=== PATIENT | male | born 1970 | race Caucasian/White ===

== ENCOUNTER 2018-06-13 11:42 | Inpatient (IN) | payer OTHER ==
[2018-06-13] MEDS ORDERED: Morphine VIAL* 10 MG/ML 1 ML VIAL IV ONE (13:33)
[2018-06-13] MEDS ORDERED: NS 0.9% 1000 ML** 1,000 ML IV ONE ×2 (13:33→14:44)
[2018-06-13] MEDS ORDERED: Ondansetron INJ* 2 MG/ML VIAL IV ONE ×2 (13:33→14:43)
--- NOTE | 2018-06-13 13:35 | ED ---
Abdominal Pain/Male - HPI Summary HPI Summary: A 48 y/o M inmate presents to ED with c/o RUQ abd pain onset at 1000 this AM. Pt had some abd pain last night and went to the [facility]. He felt better this AM, but the pain came back at 1000 and escalated quickly. At bedside, he rates the pain as 8/9 out of 10. The pain is described as pulsing and stabbing, He was given Toradol at [facility] in ED. PMHx: gallstones. Associated sx: n/v 6x , last emesis was at 729. NPO since 729 this date. Pt denies any fever, chills , erythema of eyes, sore throat, CP, SOB, cough, diarrhea, dysuria, hematuria, myalgia, edema, rash, or dizziness. He ate [employer] steak/sponge cake prior to getting his abd pain. Previous drug use: cocaine, marijuana. - History of Current Complaint Chief Complaint: EDAbdPain Stated Complaint: "UPPER STOMACH PAIN" PER GUARD Time Seen by Provider: 06/13/18 13:31 Hx Obtained From: Patient, Medical Records Onset/Duration: Sudden Onset, Lasting Hours, Still Present Timing: Constant Severity Initially: Severe Severity Currently: Severe Pain Intensity: 8 Pain Scale Used: 0-10 Numeric Location: Discrete At: RUQ Character: Other: - pulsing/stabbing Associated Signs And Symptoms: Positive: Nausea, Vomiting. Negative: Fever, Diarrhea - Allergies/Home Medications Allergies/Adverse Reactions: Allergies Allergy/AdvReac Type Severity Reaction Status Date / Time No Known Allergies Allergy Verified 06/13/18 11:50 Home Medications: Home Medications Ibuprofen TAB* [Motrin TAB* 400 MG] 400 mg PO BID 06/13/18 [History Confirmed ] Omeprazole Magnesium [Prilosec] 20 mg PO DAILY 06/13/18 [History Confirmed 06/13] PMH/Surg Hx/FS Hx/Imm Hx Previously Healthy: No GI History: Reports: Other GI Disorders - gallstones Sensory History: Denies: Hx Legally Blind Opthamlomology History: Denies: Hx Legally Blind EENT History: Denies: Hx Deafness Neurological History: Denies: Hx Dementia Infectious Disease History: No Infectious Disease History: Denies: Traveled Outside the [place] in Last 30 Days - Family History Family History: mom - gallstones - Social History Occupation: Unemployed Lives: [facility] [place], inmate Hx Substance Use: Yes - previously Substance Use Type: Reports: Cocaine, Marijuana Review of Systems Negative: Fever, Chills Negative: Erythema Negative: Sore Throat Negative: Chest Pain Negative: Shortness Of Breath, Cough Positive: Abdominal Pain, Vomiting, Nausea. Negative: Diarrhea Negative: dysuria, hematuria Negative: Myalgia, Edema Negative: Rash Neurological: Other - neg: dizziness All Other Systems Reviewed And Are Negative: Yes Physical Exam - Summary Physical Exam Summary: Constitutional: Well-developed, Well-nourished, Alert. (-) Distressed Skin: Hot to touch, Dry HENT: Normocephalic; Atraumatic Eyes: Conjunctiva normal Neck: Musculoskeletal ROM normal neck. (-) JVD, (-) Stridor, (-) Tracheal deviation Cardio: Rhythm regular, rate normal, Heart sounds normal; Intact distal pulses; The pedal pulses are 2+ and symmetric. Radial pulses are 2+ and symmetric. (-) Murmur Pulmonary/Chest wall: Effort normal. (-) Respiratory distress, (-) Wheezes, (-) Rales Abd: Soft, epigastric and LUQ tenderness, (-) Distension, (-) Guarding, (-) Rebound Musculoskeletal: (-) Edema Lymph: (-) Cervical adenopathy Neuro: Alert, Oriented x3 Psych: Mood and affect Normal Triage Information Reviewed: Yes Vital Signs On Initial Exam: Initial Vitals Temp Pulse Resp BP Pulse Ox 99.4 F 127 18 119/83 97 06/13/18 11:46 06/13/18 11:46 06/13/18 11:46 06/13/18 11:46 06/13/18 11:46 Vital Signs Reviewed: Yes Diagnostics - Vital Signs Vital Signs Temp Pulse Resp BP Pulse Ox 06/13/18 13:27 103.1 F 144 20 106/69 98 06/13/18 11:46 99.4 F 127 18 119/83 97 - Laboratory Result Diagrams: 06/13/18 13:40 06/13/18 13:40 Lab Statement: Any lab studies that have been ordered have been reviewed, and results considered in the medical decision making process. - CT A/P CT CT Interpretation Completed By: Radiologist Summary of CT Findings: IMPRESSION: Cholelithiasis with distended gallbladder and pericholecystic fluid and infiltration of fat suggestive of cholecystitis. Large multiloculated cystic mass lower pole left kidney measuring up to 10.9 cm in length with components of enhancement. A cystic renal cell carcinoma is not excluded. ED provider has reviewed this report. - Ultrasound No standard instances Ultrasound Interpretation Completed By: Radiologist Summary of Ultrasound Findings: GALLBLADDER, U/S: IMPRESSION: Cholelithiasis with partially collapsed gallbladder wall measuring up to 0.5 cm although there is a positive sonographic Salcido sign. No biliary duct dilatation is noted. Limited evaluation of the liver. ED provider has reviewed this report. - EKG 1353 Cardiac Rate: Tachycardia - 116bpm EKG Rhythm: Sinus Tachycardia Summary of EKG Findings: No STEMI. Re-Evaluation - Re-Evaluation 1 Re-Evaluation Time: 16:08 Change: Improved Comment: Discussing CT results and consult with surgery. Abdominal Pain Male Course/Dx - Course Course Of Treatment: A 48 y/o M inmate presents to ED with c/o RUQ abd pain onset at 1000 this AM. Pt had some abd pain last night and went to the [facility]. He felt better this AM, but the pain came back at 1000 and escalated quickly. At bedside, he rates the pain as 8/9 out of 10. The pain is described as pulsing and stabbing, He was given Toradol at [facility] in ED. PMHx: gallstones. Associated sx: n/v 6x, last emesis was at 0730. NPO since 0730 this date. Pt denies any fever, chills, erythema of eyes, sore throat, CP, SOB, cough , diarrhea, dysuria, hematuria, myalgia, edema, rash, or dizziness. He ate [employer] steak/sponge cake prior to getting his abd pain. Previous drug use: cocaine, marijuana. Gallbladder U/S reveals Cholelithiasis with partially collapsed gallbladder wall measuring up to 0.5 cm although there is a positive sonographic Salcido sign. No biliary duct dilatation is noted. Limited evaluation of the liver. A/P CT shows "Cholelithiasis with distended gallbladder and pericholecystic fluid and infiltration of fat suggestive of cholecystitis. Large multiloculated cystic mass lower pole left kidney measuring up to 10.9 cm in length with components of enhancement. A cystic renal cell carcinoma is not excluded.". Consulted with Dr. Steel, surgery, who will see pt in ED and admit for surgery. - Diagnoses Differential Diagnosis/HQI/PQRI: Pancreatitis, Other - gastritis, cholecystitis , colangitis Provider Diagnoses: Cholecystitis - Provider Notifications Discussed Care Of Patient With: Francisco Steel - surgery Time Discussed With Above Provider: 16:10 Instructed by Provider To: MD Will See In ED - will admit to surgery Discharge - Sign-Out/Discharge Documenting (check all that apply): Patient Departure - OR Patient Received Moderate/Deep Sedation with Procedure: No - Discharge Plan Disposition: ADMITTED TO [facility] - Attestation Statements Document Initiated by Scribe: Yes Documenting Scribe: Pina Laird Provider For Whom Scribe is Documenting (Include Credential): Dr. Babak Jerry MD Scribe Attestation: I, cora Kelleribed for Dr. Babak Jerry MD on 06/13/18 at 1921. Status of Scribe Document: Ready
[2018-06-13] MEDS ORDERED: Acetaminophen TAB* 325 MG PO ONE (13:50)
[2018-06-13 13:52] LABS: ABS Basophils 0 10^3/ul (0-0.2); ABS Eosinophils 0 10^3/ul (0-0.6); ABS Lymphocytes 0.2 10^3/ul (1.0-4.8); ABS Monocytes 0.2 10^3/ul (0-0.8); ABS Neutrophils 7.5 10^3/ul (1.5-7.7); ABS Nucleated RBC 0 10^3/ul; Eosinophil % 0.3 %; Hematocrit 45 % (42-52); Hemoglobin 15.3 g/dl (14.0-18.0); Lymphocyte % 2.4 %; Mean Corpuscular HGB Conc 34 g/dl (31-36); Mean Corpuscular Hemoglobin 31 pg (27-31); Mean Corpuscular Volume 90 fL (80-94); Mean Platelet Volume 9.7 fL (7.4-10.4); Nucleated Red Blood Cells % 0; Platelet Count 141 10^3/ul (150-450); Red Blood Count 4.98 10^6/ul (4.00-5.40); Red Cell Distribution Width 14 % (10.5-15); White Blood Count 7.9 10^3/ul (3.5-10.8)
[2018-06-13 14:18] LABS: ALT 20 U/L (7-52); AST 22 U/L (13-39); Albumin 4.5 g/dL (3.2-5.2); Albumin/Globulin Ratio 1.8 (1-3); Alkaline Phosphatase 99 U/L (34-104); Anion Gap 10 mmol/L (2-11); BUN/Creatinine Ratio 14.7 (8-20); Blood Urea Nitrogen 14 mg/dL (6-24); C Reactive Protein 133.97 mg/L (<8.01); CO2 Carbon Dioxide 22 mmol/L (22-32); Calcium 9.5 mg/dL (8.6-10.3); Chloride 105 mmol/L (101-111); EGFR African American 101.5 (>60); EGFR Non-African American 83.9 (>60); Globulin 2.5 g/dL (2-4); Glucose 135 mg/dL (70-100); Potassium 3.2 mmol/L (3.5-5.0); Sodium 137 mmol/L (135-145)
[2018-06-13] MEDS ORDERED: Iohexol 300* (CONTRAST) 10 ML SDV IV ONE (15:25)
[2018-06-13] MEDS ORDERED: metroNIDAZOLE IV 500 MG/100ML* 500 MG/100 ML BAG IVPB ONE (16:04)
[2018-06-13] MEDS ORDERED: Ciprofloxacin 400MG IVPREMIX(* 400 MG/200 ML BAG IVPB ONE (16:04)
[2018-06-13] MEDS ORDERED: Ondansetron INJ* 2 MG/ML VIAL IV PRN (17:37)
[2018-06-13] MEDS ORDERED: NS 0.9% 1000 ML** 1,000 ML IV SCH (17:45)
[2018-06-13] MEDS ORDERED: HYDROmorphone INJ1* 1 MG/ML SYRINGE IV SLOW PU PRN (17:56)
[2018-06-13] MEDS ORDERED: Piperacillin/Tazobactam VIAL*) 3.375 GM in NS 0.9% 100 ML* 100 ML IVPB SCH (18:00)
[2018-06-13] MEDS ORDERED: Zosyn 3.375 GM IV - ED ONCE IVPB ONE ×2 (18:30)
--- NOTE | 2018-06-13 20:04 | HP ---
ADMISSION HISTORY AND PHYSICAL: DATE OF ADMISSION: This patient was seen in the [facility] Emergency Department on 06/13/18. ATTENDING PHYSICIAN: Dr. Francisco Steel* (dictated by Cathie Garland NP). CHIEF COMPLAINT: Abdominal pain. HISTORY OF PRESENT ILLNESS: The patient is a 48-year-old male, who is an inmate at [facility], who presented to the emergency room today with right upper quadrant and epigastric abdominal pain with worsening onset at 10 o'clock this morning. He reports that his abdominal pain started on Sunday evening, , after eating [employer] steak and sponge cake, and then doing some exercise. He became nauseated and vomited and went to the [facility] where he was given Toradol with some relief. On Sunday, he felt a little bit better, was on a clear liquid diet, but today the pain came back at 10 o'clock this morning and escalated quickly. His last emesis was at 7:30 this morning and he has been n.p.o. since. He denied any change in the color of his urine; his last bowel movement was 2 days ago and was formed. He reports that he had a gallbladder attack in March 2018 and was evaluated at a hospital in [place] and the sonogram by his report revealed gallstones and he was not admitted at that time. He has not had any other episodes up until this week. In the emergency department, his temperature was as high as 103. He received intravenous antibiotics, Cipro, and metronidazole, and IV fluid resuscitation, and acetaminophen, and his temperature came down to 99.9. Gallbladder ultrasound was done and revealed cholelithiasis with partially collapsed gallbladder wall measuring up to 0.5 cm and there was a positive sonographic Salcido's sign. CAT scan of the abdomen and pelvis shows cholelithiasis with distended gallbladder and pericholecystic fluid and infiltration of fat suggestive of cholecystitis. A large multiloculated cystic mass in the lower pole of the left kidney measuring up to 10.9 cm in length was also noted and the comment was made that a cystic renal cell carcinoma is not excluded. Laboratory values revealed white blood cell count of 7.9, total bilirubin 1.60. Liver function tests within normal limits. Lipase less than 10 and potassium 3.2. The patient was given pain medication and at the time that I saw him, his pain was down to a 3. PAST MEDICAL HISTORY: Significant for substance abuse of cocaine and marijuana. PAST SURGICAL HISTORY: Repair of left AC separation; tendon surgery on his left hand and trauma to fingers on his right hand with surgical repair. MEDICATIONS: None currently. ALLERGIES: No known drug allergies. FAMILY HISTORY: Mother had cholecystectomy at age 40 and had aortic valve replacement recently. No known anesthesia complications, clotting disorders, or bleeding tendencies in the family. SOCIAL HISTORY: He is an inmate at [facility]. REVIEW OF SYSTEMS: Constitutional: Fever in the emergency room, no associated chills. No excessive fatigue or weight loss. General: No history of deep vein thrombosis or pulmonary embolism. No previous anesthesia complications. No history of blood transfusions. Endocrine: No diabetes or thyroid disease. Respiratory: No dyspnea on exertion. No chronic cough. Typically has good exercise tolerance. Cardiovascular: No anginal chest pain or palpitations. Gastrointestinal: As described in history of present illness. Genitourinary: No dysuria. No change in the color of urine. No history of kidney stones. Musculoskeletal: History of L4 and L5 herniated disks. Neurologic: No history of seizures. No current blurred vision. No areas of numbness or weakness. PHYSICAL EXAMINATION GENERAL SURVEY: The patient is a 48-year-old male, well developed, well nourished, in no acute distress. VITAL SIGNS: Height 5 feet 11 inches, weight 217 pounds, body mass index 30, blood pressure 106/70, pulse 90, respiratory rate 18, O2 saturation on room air 96%, temperature 99.4. HEENT: Benign. No scleral icterus. NECK: Supple. No cervical lymphadenopathy. LUNGS: Breath sounds bilaterally clear and equal. HEART: Regular rate and rhythm. No murmurs or rubs. ABDOMEN: Active bowel sounds. Soft, nondistended. Tender to palpation in the epigastric region. No guarding. No rebound tenderness. No evidence of umbilical hernia. No palpable masses or organomegaly. Negative Salcido's sign. BACK: No CVA tenderness. GENITALIA: Exam is deferred. RECTAL: Exam is deferred. EXTREMITIES: Warm without edema or skin ulceration. NEUROLOGIC: Alert and oriented x3. SKIN: Warm, dry, intact. No jaundice. IMPRESSION: Cholelithiasis with cholecystitis. PLAN: Discussed with Dr. Steel for admit to observation on short-stay surgical ; n.p.o., IV fluid resuscitation and IV antibiotics, and plan for laparoscopic cholecystectomy tomorrow. He will have repeat labs in the morning. TIME SPENT: Seventy-five minutes with greater than 50% in [id number] patient interviewing, physical examination, and coordination of care. ADOLPH GARLAND, BOUCHRA [id number]/[facility] #: [id number] RUPERT
[2018-06-13] MEDS: Ketorolac INJ* 30 MG/ML 1 ML VIAL IV PRN (21:01)
[2018-06-13] MEDS: Piperacillin/Tazobactam VIAL*) 3.375 GM in NS 0.9% 100 ML* 100 ML IVPB SCH (22:28)
[2018-06-13 22:53] LABS: Urine Appearance Clear; Urine Bilirubin Negative (Negative); Urine Blood Negative (Negative); Urine Color Yellow; Urine Glucose Negative (Negative); Urine Ketones Trace (Negative); Urine Nitrite Negative (Negative); Urine Protein Negative (Negative); Urine Specific Gravity 1.046 (1.010-1.030); Urine Urobilinogen Negative (Negative)
[2018-06-14] MEDS: Ketorolac INJ* 30 MG/ML 1 ML VIAL IV PRN ×2 (05:25→18:33)
[2018-06-14 05:40] LABS: Hematocrit 39 % (42-52); Mean Corpuscular HGB Conc 34 g/dl (31-36); Mean Corpuscular Hemoglobin 31 pg (27-31); Mean Corpuscular Volume 91 fL (80-94); Mean Platelet Volume 9.5 fL (7.4-10.4); Platelet Count 111 10^3/ul (150-450); Red Blood Count 4.24 10^6/ul (4.00-5.40); Red Cell Distribution Width 15 % (10.5-15); White Blood Count 6.9 10^3/ul (3.5-10.8)
[2018-06-14 05:44] LABS: ABS Basophils 0 10^3/ul (0-0.2); ABS Eosinophils 0.1 10^3/ul (0-0.6); ABS Lymphocytes 0.4 10^3/ul (1.0-4.8); ABS Monocytes 0.7 10^3/ul (0-0.8); ABS Neutrophils 5.5 10^3/ul (1.5-7.7); ABS Nucleated RBC 0 10^3/ul; Eosinophil % 1.2 %; Lymphocyte % 5.7 %; Nucleated Red Blood Cells % 0
[2018-06-14] MEDS: Piperacillin/Tazobactam VIAL*) 3.375 GM in NS 0.9% 100 ML* 100 ML IVPB SCH ×2 (06:03→16:39)
[2018-06-14 06:04] LABS: Albumin 3.6 g/dL (3.2-5.2); Albumin/Globulin Ratio 1.8 (1-3); BUN/Creatinine Ratio 13.2 (8-20); Calcium 8.2 mg/dL (8.6-10.3); EGFR African American 82.3 (>60); Potassium 3.8 mmol/L (3.5-5.0); Total Bilirubin 1.1 mg/dL (0.2-1.0); Total Protein 5.6 g/dL (6.4-8.9)
--- NOTE | 2018-06-14 08:31 | PN ---
Progress Note - Progress Note Date of Service: 06/14/18 Note: Cholecystitis Now afebrile, VS noted No N/V Pain better after pain meds Abd still quite tender RUQ and epig. Still +Salcido's sign Labs noted. Discussed need for surgery, he understands that one of my partners is likely to perform surgery I discussed findings of mass on left kidney--I have asked Dr Perez to se him in that regard. I agree with assessment and plan in H&P by Talisha Garland.
[2018-06-14] MEDS ORDERED: Sugammadex * 200 MG/2 ML VIAL IV PUSH ONE (12:31)
[2018-06-14] MEDS ORDERED: Rocuronium* 10 MG/ML VIAL ONE (12:31)
[2018-06-14] MEDS ORDERED: fentaNYL* 50 MCG/ML 2 ML VIAL (100 MCG VIAL) ONE ×2 (12:34→13:56)
[2018-06-14] MEDS ORDERED: Dexamethasone IV* 4 MG/ML 1 ML (4 MG) ONE ×2 (12:34→12:45)
[2018-06-14] MEDS ORDERED: Ketorolac INJ* 30 MG/ML 1 ML VIAL ONE (12:34)
[2018-06-14] MEDS ORDERED: Midazolam* 1 MG/ML 2 ML VIAL (2 MG) ONE (12:34)
[2018-06-14] MEDS ORDERED: Ondansetron INJ* 2 MG/ML VIAL ONE (12:34)
[2018-06-14] MEDS ORDERED: Lidocaine 2% PF * 5 ML VIAL ONE (12:35)
[2018-06-14] MEDS ORDERED: Propofol* 10 MG/ML 20 ML BTL ONE (12:35)
[2018-06-14] MEDS ORDERED: Famotidine IV* 10 MG/ML 2 ML (20 mg) IV ONE (12:45)
[2018-06-14] MEDS ORDERED: Dexamethasone IV* 4 MG/ML 1 ML (4 MG) IV SLOW PU ONE (12:45)
[2018-06-14] MEDS ORDERED: Famotidine IV* 10 MG/ML 2 ML (20 mg) ONE (12:45)
[2018-06-14] MEDS ORDERED: Bupivacaine 0.25% W/EPI* 10 ML SDV ONE (12:49)
[2018-06-14] MEDS ORDERED: ceFAZolin 2 GM in NS PREMIX(*) 2 GM/100 ML BAG IVPB ONE (13:19)
[2018-06-14] MEDS ORDERED: Naloxone* 0.4 MG/ML 1 ML VIAL IV PRN (14:24)
[2018-06-14] MEDS ORDERED: fentaNYL* 50 MCG/ML 2 ML VIAL (100 MCG VIAL) IV PRN (14:24)
[2018-06-14] MEDS ORDERED: DiMENhydriNATE IV* 50 MG/ML VIAL IV PUSH PRN (14:24)
--- NOTE | 2018-06-14 14:38 | OP ---
Operative Report - Blank - Operative Report Date of Operation: 06/14/18 Note: Brief Operative Note Preop Dx: Cholecystitis Postop Dx: Cholecystitis Procedure: Laparoscopic cholecystectomy Anesthesia: GET Surgeon: Claudia Cafe Assistant: Francisco Sorenson Fluids: 900 ml LR EBL: 100 cc Specimen: Gallbladder Drains: none Findings: dictated
[2018-06-14] MEDS ORDERED: Acetaminophen TAB* 325 MG ONE (15:10)
[2018-06-14] MEDS: Acetaminophen TAB* 325 MG PO PRN (15:11)
--- NOTE | 2018-06-14 15:12 | OP ---
DATE OF OPERATION: 06/14/18 - ROOM #353 DATE OF : 66 SURGEON: Suresh Almonte MD PROPERTY ADJUSTER: JUDE Norman PRE-OP DIAGNOSIS: Cholecystitis. POST-OP DIAGNOSIS: Cholecystitis. OPERATIVE PROCEDURE: Laparoscopic cholecystectomy. INDICATIONS FOR PROCEDURE: Cholecystitis. Risks including but not limited to bleeding, infection, injury to the bowel or other intraabdominal contents including the common bile duct, liver, as well as cystic duct leak and others were explained to the patient who seemed to understand and agreed to the procedure and all questions were answered. DESCRIPTION OF PROCEDURE: The patient was taken to the operating room, placed supine. Preoperative antibiotics were given. After the successful induction of general endotracheal anesthesia, the abdomen was prepped and draped in a sterile fashion. A 5-mm trocar was placed to the right of the falciform ligament in the subxiphoid position under direct visualization of the camera using a bladeless optic trocar. Pneumoperitoneum was achieved to 15 mmHg. A camera was placed in the abdomen and the abdomen was scanned. There was no obvious injury from trocar placement. A 12-mm infraumbilical and two 5-mm right lateral trocars were placed sequentially under direct visualization of the camera in similar fashion, all bladeless. The patient was placed in the reverse Trendelenburg position towards the left. The fundus of the gallbladder was covered with adherent omentum, which was gently, bluntly from the fundus. The fundus was grasped and retracted up and over the liver exposing the acutely inflamed gallbladder. The cystic duct was identified, isolated, clipped, and divided. The cystic artery was identified, isolated, clipped, and divided. The gallbladder was removed from the hepatic bed using Bovie cautery on the scissors. It was placed into an Endobag and removed through the umbilical port site. The right upper quadrant was irrigated and aspirated dry. Hemostasis was intact. EBL was approximately 30 cc. The omentum was placed back in the hepatic cavity/gallbladder fossa. The trocars were removed after the pneumoperitoneum was released from the abdomen. The skin at all sites was closed with Monocryl and glue. He tolerated the procedure well. He was extubated and taken to the recovery room in stable condition. [id number]/[facility] #: [id number] [facility]
[2018-06-14] MEDS: Lactated Ringers 1000 ML Bag* 1,000 ML IV SCH (18:36)
[2018-06-15] MEDS: Lactated Ringers 1000 ML Bag* 1,000 ML IV SCH (01:46)
[2018-06-15] MEDS: Acetaminophen TAB* 325 MG PO PRN ×2 (07:34→14:29)
[2018-06-15] MEDS: Ketorolac INJ* 30 MG/ML 1 ML VIAL IV PRN ×2 (07:43→14:28)
[2018-06-15 15:29] VITALS: BP 118/68
--- NOTE | 2018-06-16 07:10 | DS ---
DISCHARGE SUMMARY: DATE OF ADMISSION: 06/13/18 DATE OF DISCHARGE: 06/15/18 SERVICE: General Surgery. ATTENDING SURGEONS: Dr. Francisco Steel, Dr. Suresh Almonte, and Dr. Destiny Wilson. ADMISSION DIAGNOSIS: Acute cholecystitis. DISCHARGE DIAGNOSIS: Acute cholecystitis. OPERATION: Laparoscopic cholecystectomy. HOSPITAL COURSE: Mr. Epps is a 48-year-old gentleman who is an inmate at [facility], who presented to the emergency room with right upper quadrant abdominal pain. He was found on RUQ ultrasound to have cholelithiasis and a CT scan showed cholelithiasis and a distended gallbladder with pericholecystic fluid. He also had a large multiloculated cystic mass in the left lower pole of the kidney that was incidentally found on CT scan. He was admitted to the surgical service and he underwent a laparoscopic cholecystectomy by Dr. Almonte on 06/14/18. He was admitted for antibiotics overnight, and on the day of discharge, on postoperative day #1, he was doing well. He was tolerating a regular diet. He was ambulating. His vital signs were all within normal limits , and his abdominal pain was minimal. He will be discharged back to the care of the [facility]. PHYSICAL EXAM ON DISCHARGE: General: He is a well-appearing middle-aged gentleman, lying comfortably in bed. Abdomen was soft, nontender, nondistended. Incisions were clean, dry, and intact. Vital Signs: Temperature was 98.6, pulse was 58, respiratory rate was 22, O2 sat 99% O2 on room air, blood pressure is 118/68. DISCHARGE INSTRUCTIONS: Written by JUDE Norman, who instructed that he should have followup for his incidental finding of renal cyst on the CT scan with urology and the CT was also included into the packet. This information should be relayed to his correctional facility for further followup. He will also follow up in our office on 06/24/18 at 10:30 a.m. for postoperative appointment. CONDITION AND DISPOSITION: Good, to [facility]. [id number]/[facility] #: [id number] MTDSteve
--- NOTE | 2018-06-16 17:47 | CONS ---
MEDICAL ONCOLOGY CONSULTATION NOTE: DATE OF CONSULT: 06/14/18 REASON FOR CONSULT: Renal mass. HISTORY OF PRESENT ILLNESS: Mr. Epps is a 48-year-old male who currently is an inmate at [facility]. He developed abdominal pain on 06/11/18 after eating a large meal and exercising. He had subsequent nausea and vomiting. He presented to the emergency room with worsening pain along with fever. He had been told in March 2018 at the time of a gallbladder attack in [place] that he had gallstones. At that time, he was not febrile and he was not admitted. This was his only previous episode. Ultrasound was obtained and revealed cholelithiasis with partially collapsed gallbladder and a positive sonographic Salcido sign. CT scan of the abdomen and pelvis confirmed the cholelithiasis with distended gallbladder and pericholecystic fluid and infiltration of fat suggestive of a cholecystitis. The plan is for him to go to the operating room later today for a cholecystectomy. On his CT scan, he was found to have a large multiloculated cystic mass in the left kidney measuring 11 x 7.3 x 8.3 cm. This is in the lower pole of the kidney. They are thickened septa with enhancement. Concern for a cystic renal cell carcinoma is raised. There is no associated retroperitoneal adenopathy and there is no extension into any of the veins. No signs of any metastatic disease are noted including looking through the lung bases. The patient denies having had any significant left-sided abdominal or flank pain. Denies having had any early satiety or weight loss. Denies any significant hematuria grossly and on a urinalysis obtained through the emergency room on this visit, there were no signs of blood noted. PAST MEDICAL HISTORY: GERD on Prilosec; herniated disk. PAST SURGICAL HISTORY: Surgery for repair of left AC separation. Surgery on left hand tendon. MEDICATIONS: None. ALLERGIES: None. FAMILY HISTORY: Mother, cholecystectomy at age 40. No known other gallbladder or renal disease. Mother with ovarian cancer at 35. Maternal grandmother with lung cancer in her 60s, was a smoker. Maternal uncle with throat cancer at 63. SOCIAL HISTORY: Cigarettes, 20 to 25 years, pack per day. Alcohol socially. Has used cannabis and cocaine. REVIEW OF SYSTEMS: As discussed above. No fevers until last day. No significant shortness of breath, chest pain, or palpitation. No significant weight loss. No significant other GI complaints. No significant abdominal pain until recently. No significant neurologic issues. PHYSICAL EXAM: A [id number] in no acute distress. Height 5 feet 11 inches. Weight 217 pounds. BP 106/70, pulse 90, afebrile. HEENT: PERRL. EOMI. No erythema or exudates. No scleral icterus. No palpable cervical, supraclavicular, or axillary adenopathy. Lungs: Clear. Heart: Regular rate and rhythm without murmurs, rubs, or gallops. Abdomen: Soft, nontender other than some mild tenderness in the right upper quadrant and some fullness in the left mid lateral abdomen. Back: No CVA or spinal tenderness. Extremities: No edema. IMPRESSION AND PLAN: A [id number] who is going to the operating room later today for laparoscopic cholecystectomy. This consultation is for the large renal mass that is cystic that is noted incidentally on the CT scan. This will require further workup thorough Urology. Options are for him to seen by Urology while still incarcerated. He also asks whether it would be appropriate for him to wait 30 to 40 days. He will be seen closer to home after his expected release. He lives in [facility] and would be willing to be seen up there at that time. I have advised him if this were to be the case that he should have a family or friend set up a consultation in advance of discharge from [facility] and have a visit available shortly after discharge. It is highly likely that he will need a resection of this mass. Lesions that are suspicious for renal cell carcinoma are rarely biopsied under guidance and instead tend to proceed directly to surgery. It would certainly be reasonable for imaging of the chest to be obtained prior to that to make sure there are no signs of any metastatic disease that was not seen at the time of the CT of the abdomen and pelvis only. [id number]/[facility] #: [id number] RUPERT
== END 2018-06-15 18:20 | DRG 263 ==
LOC: ED 11:42 → SSU 17:37 → EEVIPCON 17:37 → OBSVTOIN 06-14 16:00
PROVIDERS: ADMIT Student in an Organized Health Care Education/Training Program; ATTEND Surgery
PROC: 0FT44ZZ Resection of Gallbladder, Percutaneous Endoscopic Approach (ICD-10-PCS; principal; 2018-06-14 13:45)
DX: K80.00 Calculus of gallbladder with acute cholecystitis without obstruction (principal); N28.89 Other specified disorders of kidney and ureter; K21.9 Gastro-esophageal reflux disease without esophagitis; Z56.0 Unemployment, unspecified; Z82.49 Family history of ischemic heart disease and other diseases of the circulatory system; Z83.79 Family history of other diseases of the digestive system; Z80.1 Family history of malignant neoplasm of trachea, bronchus and lung; Z81.2 Family history of tobacco abuse and dependence; Z80.8 Family history of malignant neoplasm of other organs or systems
CPT/HCPCS: 36415; 74177; 76705; 80053; 81003; 83605; 83690; 85025; 86140; 88304; 93005; 96374; 96375; 99285; A9270-GY; G0378; J0690; J0744; J1100; J1885; J2250; J2270; J2405; J2543; J2704; J3010; J3490; Q9967